=== PATIENT | female | born 1970 | race Caucasian/White ===

== ENCOUNTER → 2016-09-22 | Outpatient (CLI) | payer OTHER ==
[~2016-09-22] MED LIST: CITALOPRAM HBR40 MG PO; HEARTBURN RELI200 MG PO; KLOR-CON M2020 MEQ PO; OXYBUTYNIN CHLOR5 MG PO; PRAVACHOL40 MG PO; SINGULAIR10 MG PO; SYNTHROID88 MCG PO; VITAMIN D2000 UNIT PO
== END ==
LOC: KOH-I 15:10
DX: J20.9 Acute bronchitis, unspecified (principal)
CPT/HCPCS: 71020

== ENCOUNTER 2016-09-30 22:44 | Emergency (ER) | payer OTHER | END 2016-09-30 23:45 | disposition left against medical advice (07) | LOC: ER1 22:44 | DX: Z53.21 Procedure and treatment not carried out due to patient leaving prior to being seen by health care provider (principal) ==

== ENCOUNTER → 2016-10-10 | Outpatient (CLI) | payer OTHER | LOC: HEART 5 11:02 | DX: R06.02 Shortness of breath (principal) | CPT/HCPCS: 94060 ==

== ENCOUNTER → 2016-11-11 | Outpatient (CLI) | payer OTHER | LOC: EXRD 13:44 | DX: M81.0 Age-related osteoporosis without current pathological fracture (principal) | CPT/HCPCS: 77080 ==

== ENCOUNTER 2020-09-22 11:28 | Emergency (ER) | payer OTHER ==
[~2020-09-22 11:28] MED LIST changes: +DIFLUCAN200 MG PO; +FLEXERIL 10 MG10 MG PO; +IBUPROFEN600 MG PO; +KEFLEX CAP 500500 MG PO; +NEOSPORIN OINT30 GM TOP; +OMNICEF 300 MG300 MG PO
== END 2020-09-22 15:00 | disposition home or self-care (01) ==
LOC: ER1 11:28
DX: M25.552 Pain in left hip (principal); Z90.49 Acquired absence of other specified parts of digestive tract; W18.2XXA Fall in (into) shower or empty bathtub, initial encounter
CPT/HCPCS: 73502; 73552; 73562; 99283

== ENCOUNTER 2021-11-08 13:24 | Emergency (ER) | payer OTHER ==
[2021-11-08] MEDS ORDERED: CYCLOBENZAPRINE10 MG PO (15:21)
== END 2021-11-08 16:15 | disposition home or self-care (01) ==
LOC: ER1 13:24
DX: M62.838 Other muscle spasm (principal); M25.512 Pain in left shoulder; I10 Essential (primary) hypertension; Z88.8 Allergy status to other drugs, medicaments and biological substances
CPT/HCPCS: 70490; 73030; 99284

== ENCOUNTER 2021-11-15 12:57 | Emergency (ER) | payer OTHER ==
[~2021-11-15 12:57] MED LIST changes: +CYCLOBENZAPRINE10 MG PO
[2021-11-15 15:24] LABS: HEMOGLOBIN 13.9 gm/dl (12.3-15.3); RED BLOOD COUNT 4.7 M/UL (4.00-5.10); WHITE BLOOD COUNT 7.9 K/UL (4.5-11.0)
[2021-11-15 15:45] LABS: BUN/CREATININE RATIO 29 (0-10)
== END 2021-11-15 16:55 | disposition home or self-care (01) ==
LOC: ER1 12:57
PROVIDERS: Physician Assistant
DX: R20.2 Paresthesia of skin (principal); R68.2 Dry mouth, unspecified; M62.838 Other muscle spasm; E78.5 Hyperlipidemia, unspecified; I10 Essential (primary) hypertension; Z88.8 Allergy status to other drugs, medicaments and biological substances
CPT/HCPCS: 70450; 80053; 83735; 85025; 99284